=== PATIENT | male | born 1965 | race Caucasian/White ===

== ENCOUNTER 2016-08-30 18:04 | Emergency (ER) | payer SELFPAY ==
[2016-08-30] MEDS ORDERED: NS 500 ML IV ONE (18:10)
[2016-08-30] MEDS ORDERED: NITROGLYCERIN 0.4 MG BTL SL PRN (18:10)
--- NOTE | 2016-08-30 18:14 | EDPHY ---
H & P Time Seen by Provider: 08/30/16 18:05 HPI/ROS: CHIEF COMPLAINT: Chest pain HISTORY OF PRESENT ILLNESS: The patient is a 51-year-old man with a history of only hypertension who comes to the emergency department complaining of chest tightness and pressure for the last 2 hours. It began around 4:00 a.m.. He has never had these symptoms before. They have not been associated with eating or exercise or any other type of activity. He thought that maybe he had been working too hard over the last 2 days. He denies any leg pain or swelling. He is not a smoker. No recent travel or surgery. No history of cardiac disease. He is not on any medications. He does occasionally of heartburn but states that this does not feel similar. He points to his lower sternum as the area of pain. No shortness of breath, no nausea, no vomiting no diaphoresis. No lightheadedness or dizziness. REVIEW OF SYSTEMS: Constitutional: denies: chills, fever, recent illness, recent injury EENTM: denies: blurred vision, double vision, nose congestion Respiratory: denies: cough, shortness of breath Cardiac: See HPI Gastrointestinal/Abdominal: denies: abdominal pain, diarrhea, nausea, vomiting, blood streaked stools Genitourinary: denies: dysuria, frequency, hematuria, pain Musculoskeletal: denies: joint pain, muscle pain Skin: denies: lesions, rash, jaundice, bruising Neurological: denies: headache, numbness, paresthesia, tingling, dizziness, weakness Hematologic/Lymphatic: denies: blood clots, easy bleeding, easy bruising Immunologic/allergic: denies: HIV/AIDS, transplant EXAM: GENERAL: Well-appearing, obese, no acute distress HEAD: Atraumatic, normocephalic. EYES: Pupils equal round and reactive to light, extraocular movements intact, sclera anicteric, conjunctiva are normal. ENT: TMs normal, nares patent, oropharynx clear without exudates. Moist mucous membranes. NECK: Normal range of motion, supple without lymphadenopathy or JVD. LUNGS: Breath sounds clear to auscultation bilaterally and equal. No wheezes rales or rhonchi. HEART: Regular rate and rhythm without murmurs, rubs or gallops. ABDOMEN: Soft, nontender, normoactive bowel sounds. No guarding, no rebound. No masses appreciated. BACK: No CVA tenderness, no spinal tenderness, step-offs or deformities EXTREMITIES: Normal range of motion, no pitting or edema. No clubbing or cyanosis. NEUROLOGICAL: Cranial nerves II through XII grossly intact. Normal speech, normal gait. 5/5 strength, normal movement in all extremities, normal sensation PSYCH: Normal mood, normal affect. SKIN: Warm, dry, normal turgor, no visible rashes or lesions. Source: Patient Exam Limitations: No limitations - Medical/Surgical History Hx Asthma: No Hx Chronic Respiratory Disease: No Hx Diabetes: No Hx Cardiac Disease: No Hx Renal Disease: No Hx Cirrhosis: No Hx Alcoholism: No - Family History Significant Family History: No pertinent family hx - Social History Smoking Status: Never smoked Alcohol Use: Sober Drug Use: None Constitutional: Initial Vital Signs Temperature (C) 37.3 C 08/30/16 18:13 Heart Rate 86 08/30/16 18:13 Respiratory Rate 16 08/30/16 18:13 Blood Pressure 165/102 H 08/30/16 18:13 O2 Sat (%) 93 08/30/16 18:13 O2 Delivery Mode Room Air Allergies/Adverse Reactions: No Known Allergies Allergy (Unverified 08/30/16 18:13) Home Medications: Medication Instructions Recorded Blood Pressure Medicine 08/30/16 Medical Decision Making - Diagnostics EKG Interpretation: An EKG obtained and was read and documented in trace view. Please see trace view for full reading and report. Sinus rhythm, no acute ischemic changes Imaging: X-ray: chest x-ray was obtained. I viewed the images myself on the PACS system. My interpretation of the images is: negative for acute disease . The radiologist interpretation is negative. ED Course/Re-evaluation: 7:55 p.m. we discussed the patient's lab and x-ray and EKG results. He is reassured. He is currently pain free. His blood pressure is better than it has been in several years at 125/70. He is eager to go home and declines any further workup or testing. I recommended a repeat troponin in the ER or admission to the hospital and stress testing. The patient declines both these. He will follow up with his doctor Sonya for outpatient stress test. We discussed the fact that his lipase is slightly high. He does not have any abdominal tenderness. He does drink fairly often a recommended he decrease his alcohol intake. He states that he has been unemployed for the last 3 months and that this has been contributing to his stress. He has had a job offer recently however Differential Diagnosis: Partial list of the Differential diagnosis considered include but were not limited to; acute coronary disease, arrhythmia, anxiety, pneumonia and although unlikely based on the history and physical exam, I also considered PE, pancreatitis, biliary disease. I discussed these differential diagnoses and the plan with the patient as well as the usual and expected course. The patient understands that the diagnosis is provisional and that in medicine we are not always correct and that further workup is often warranted. Usual and customary warnings were given. All of the patient's questions were answered. The patient was instructed to return to the emergency department should the symptoms at all worsen or return, otherwise to followup with the physician as we discussed. - Data Points Laboratory Results: Laboratory Results 08/30/16 17:45 08/30/16 17:45 08/30/16 17:45 WBC 7.46 10^3/uL (3.80-9.50) RBC 5.40 10^6/uL (4.40-6.38) Hgb 17.3 g/dL (13.7-17.5) Hct 48.4 % (40.0-51.0) MCV 89.6 fL (81.5-99.8) MCH 32.0 pg (27.9-34.1) MCHC 35.7 g/dL (32.4-36.7) RDW 12.0 % (11.5-15.2) Plt Count 243 10^3/uL (150-400) MPV 10.2 fL (8.7-11.7) Neut % (Auto) 52.9 % (39.3-74.2) Lymph % (Auto) 34.9 % (15.0-45.0) [place] % (Auto) 7.2 % (4.5-13.0) Eos % (Auto) 3.9 % (0.6-7.6) Baso % (Auto) 0.8 % (0.3-1.7) Nucleat RBC Rel Count 0.0 % (0.0-0.2) Absolute Neuts (auto) 3.95 10^3/uL (1.70-6.50) Absolute Lymphs (auto) 2.60 10^3/uL (1.00-3.00) Absolute Monos (auto) 0.54 10^3/uL (0.30-0.80) Absolute Eos (auto) 0.29 10^3/uL (0.03-0.40) Absolute Basos (auto) 0.06 10^3/uL (0.02-0.10) Absolute Nucleated RBC 0.00 10^3/uL (0-0.01) Immature Gran % 0.3 % (0.0-1.1) Immature Gran # 0.02 10^3/uL (0.00-0.10) D-Dimer < 0.27 ug/mLFEU (0.00-0.50) Sodium 139 mEq/L (134-144) Potassium 4.2 mEq/L (3.5-5.2) Chloride 104 mEq/L (97-110) Carbon Dioxide 20 L mEq/l (22-31) Anion Gap 15 mEq/L (8-16) BUN 18 mg/dL (7-23) Creatinine 0.8 mg/dL (0.7-1.3) Estimated GFR > 60 Glucose 98 mg/dL (70-100) Calcium 9.9 mg/dL (8.5-10.4) Total Bilirubin 1.0 mg/dL (0.1-1.4) Conjugated Bilirubin 0.3 mg/dL (0.0-0.5) Unconjugated Bilirubin 0.7 mg/dL (0.0-1.1) AST 49 IU/L (17-59) ALT 80 H IU/L (21-72) Alkaline Phosphatase 101 IU/L (38-126) Troponin I < 0.012 ng/mL (0-0.034) Total Protein 7.8 g/dL (6.3-8.2) Albumin 4.7 g/dL (3.5-5.0) Lipase 375.0 H IU/L (23-300) Medications Given: Discontinued Medications Sodium Chloride (Ns) 500 mls @ 0 mls/hr IV ONCE ONE PRN Reason: As Directed Stop: 08/30/16 18:11 Last Admin: 08/30/16 18:32 Dose: 500 mls Departure - Departure Disposition: Home, Routine, Self-Care Clinical Impression: Chest pain Qualifiers: Chest pain type: unspecified Qualifier Code: (R07.9) Chest pain, unspecified Condition: Fair Instructions: Chest Pain (ED) Additional Instructions: Follow-up with your doctor to have a stress test within 72 hours. If her symptoms return or worsen return to the emergency department. Referrals: Keith Hassan [Primary Care Provider] - As per Instructions Zachary Rollins MD [Medical Doctor] - As per Instructions
[2016-08-30 18:15] VITALS: RESP 16; TEMP 99.1
--- NOTE | 2016-08-30 18:15 | CPEKG ---
Heart Rate: 77 RR Interval: 779 P-R Interval: 168 QRSD Interval: 90 QT Interval: 376 QTC Interval: 426 P [place]: 42 QRS [place]: 88 T Wave [place]: 9 EKG Severity - NORMAL ECG - EKG Impression: SINUS RHYTHM Electronically Signed By: Isra Lopez 30-Aug-2016 18:16:39
[2016-08-30 18:22] LABS: % IMMATURE GRANULYOCYTES 0.3 % (0.0-1.1); ABSOLUTE IMMATURE GRANULOCYTES 0.02 10^3/uL (0.00-0.10); ADD DIFF? NO; ADD MORPH? NO; ADD SCAN? NO; ATYPICAL LYMPHOCYTE FLAG 0 (0-99); FRAGMENT RBC FLAG 0 (0-99); HEMATOCRIT 48.4 % (40.0-51.0); HEMOGLOBIN 17.3 g/dL (13.7-17.5); LEFT SHIFT FLG 0 (0-99); LIPEMIA HEMOLYSIS FLAG 90 (0-99); MEAN CELL HEMOGLOBIN CONCENTR. 35.7 g/dL (32.4-36.7); MEAN CELL VOLUME 89.6 fL (81.5-99.8); MEAN PLATELET VOLUME 10.2 fL (8.7-11.7); PLATELET CLUMPS FLAG 0 (0-99); PLATELET COUNT 243 10^3/uL (150-400)
[2016-08-30 18:37] LABS: ALANINE AMINOTRANSFERASE 80 IU/L (21-72); ALBUMIN 4.7 g/dL (3.5-5.0); ALKALINE PHOSPHATASE 101 IU/L (38-126); ANION GAP 15 mEq/L (8-16); ASPARTATE AMINOTRANSFERASE 49 IU/L (17-59); BILIRUBIN-CONJUGATED 0.3 mg/dL (0.0-0.5); BILIRUBIN-UNCONJUGATED 0.7 mg/dL (0.0-1.1); CALCIUM 9.9 mg/dL (8.5-10.4); CARBON DIOXIDE 20 mEq/l (22-31); CHLORIDE 104 mEq/L (97-110); CREATININE 0.8 mg/dL (0.7-1.3); GLOMERULAR FILTRATION RATE > 60; GLUCOSE 98 mg/dL (70-100); POTASSIUM 4.2 mEq/L (3.5-5.2); SODIUM 139 mEq/L (134-144); TOTAL PROTEIN 7.8 g/dL (6.3-8.2)
[2016-08-30 18:47] LABS: TROPONIN I < 0.012 ng/mL (0-0.034)
--- NOTE | 2016-08-30 18:57 | DX ---
PA and Lateral Chest X-ray 1801 hours History: Chest pain and tightness. History of hypertension. Findings: Heart size and pulmonary vasculature are normal. The lungs are clear without infiltrates or effusions. There is no pneumothorax. Internal fixation plate is noted left clavicle from previous fr acture. Mild hypertrophic osteophytes are noted anteriorly involving the lower thoracic spine. Impression: No active cardiopulmonary disease seen.
[2016-08-30 20:12] VITALS: BP 155/90; PULSE 72; O2SAT 98
== END 2016-08-30 20:12 | disposition home or self-care (01) ==
LOC: EDUNIT#
DX: R07.9 Chest pain, unspecified (principal)

== ENCOUNTER 2016-09-23 00:34 | Emergency (ER) | payer SELFPAY ==
[2016-09-23 00:41] VITALS: RESP 16
--- NOTE | 2016-09-23 01:32 | EDPHY ---
HPI/HX/ROS/PE/MDM Narrative: Chief complaint: Headache, nausea, chest discomfort, sweating HPI: 51-year-old male with a history of hypertension presenting with 1 week of mild 1/10 headache, had some nausea today. He has been feeling like he has had just a mild cold-like symptoms. Has had his normal energy is been exercising. He is also stating that he has been having some intermittent chest irritation at the bottom of his sternum for the last month. He has been having it daily. There are no exacerbating factors. At worst is a 1 to 2/10. He last had it 2 days ago. He made an appointment to see his physician later this morning. The woke up at about 07/1930 in a cold sweat which alarmed him. He is now presenting with concerns that he might have a heart condition. Does not have any cough, no sore throat, no abdominal pain, no shortness of breath. No dyspnea on exertion. He has had some nasal congestion. He has not noticed any aggravating or alleviating factors. Some subjective fevers chills. Does not have any family history of coronary artery disease. He does not smoke cigarettes. ROS: 10 point Review of Systems is negative except as noted in the HPI. Past medical history: Hypertension Medications: Lisinopril Allergies: No known drug allergies Social history: Does not smoke, does drink occasional alcohol, does use occasional marijuana Family history: No family history of coronary artery disease and 1st or second- degree relatives Physical exam: Gen: Awake, Alert, No Distress HEENT: Nose: no rhinorrhea Eyes: PERRLA, EOMI Mouth: Moist mucosa Neck: Supple, no JVD Chest: nontender, lungs clear to auscultation Heart: S1, S2 normal, no murmur Abd: Soft, non-tender, no guarding Back: no CVA tenderness, no midline tenderness Ext: no edema, non-tender Skin: no rash Neuro: CN II-XII intact, Sensation grossly intact, Strength 5/5 in bilateral upper and lower extremities ED Course: 51-year-old male presenting with 1 month of intermittent mild chest discomfort, mild headache, upper respiratory symptoms, woke with a cold sweat is concerned that he might be having a heart attack. I suspect symptoms are likely benign in nature. Will obtain an ECG, CBC, metabolic panel and troponin. If these are all negative anticipate he will be discharged home with follow-up with his primary care physician for outpatient stress testing. ECG: Normal I have reviewed the patient's records. He was here on the 7th of this month for an episode of chest pain. His workup at that time was negative. He was referred for outpatient follow-up for stress test. Patient has not yet arranged. Patient's workup appears negative. ECG is normal. Troponin is negative. Symptoms are likely secondary to a viral etiology. Will discharge with follow- up with his primary care physician to arrange for outpatient stress test. - Data Points Laboratory Results: Laboratory Results 09/23/16 00:55 09/23/16 00:55 09/23/16 09/23/16 00:58 00:55 WBC 9.13 10^3/uL (3.80-9.50) RBC 4.98 10^6/uL (4.40-6.38) Hgb 16.1 g/dL (13.7-17.5) Hct 45.1 % (40.0-51.0) MCV 90.6 fL (81.5-99.8) MCH 32.3 pg (27.9-34.1) MCHC 35.7 g/dL (32.4-36.7) RDW 12.5 % (11.5-15.2) Plt Count 206 10^3/uL (150-400) MPV 10.2 fL (8.7-11.7) Neut % (Auto) 53.9 % (39.3-74.2) Lymph % (Auto) 31.9 % (15.0-45.0) [place] % (Auto) 8.5 % (4.5-13.0) Eos % (Auto) 4.6 % (0.6-7.6) Baso % (Auto) 0.7 % (0.3-1.7) Nucleat RBC Rel Count 0.0 % (0.0-0.2) Absolute Neuts (auto) 4.92 10^3/uL (1.70-6.50) Absolute Lymphs (auto) 2.91 10^3/uL (1.00-3.00) Absolute Monos (auto) 0.78 10^3/uL (0.30-0.80) Absolute Eos (auto) 0.42 H 10^3/uL (0.03-0.40) Absolute Basos (auto) 0.06 10^3/uL (0.02-0.10) Absolute Nucleated RBC 0.00 10^3/uL (0-0.01) Immature Gran % 0.4 % (0.0-1.1) Immature Gran # 0.04 10^3/uL (0.00-0.10) Sodium 137 mEq/L (134-144) Potassium 4.1 mEq/L (3.5-5.2) Chloride 104 mEq/L (97-110) Carbon Dioxide 24 mEq/l (22-31) Anion Gap 9 mEq/L (8-16) BUN 15 mg/dL (7-23) Creatinine 0.7 mg/dL (0.7-1.3) Estimated GFR > 60 Glucose 97 mg/dL (70-100) Calcium 9.2 mg/dL (8.5-10.4) Troponin I Pending Influenza Typ A,B (DFA) NEGATIVE FOR FLU (NEGATIVE) General Time Seen by Provider: 09/23/16 01:09 Initial Vital Signs: Initial Vital Signs Temperature (C) 36.7 C 09/23/16 00:38 Heart Rate 85 09/23/16 00:38 Respiratory Rate 16 09/23/16 00:38 Blood Pressure 166/112 H 09/23/16 00:38 O2 Sat (%) 95 09/23/16 00:38 O2 Delivery Mode Room Air Allergies/Adverse Reactions: No Known Allergies Allergy (Unverified 09/23/16 00:38) Home Medications: Medication Instructions Recorded Lisinopril 09/23/16 Departure - Departure Disposition: Home, Routine, Self-Care Clinical Impression: Chest pain, Viral upper respiratory tract infection Condition: Good Instructions: Chest Pain (ED), Viral Syndrome (ED) Additional Instructions: Follow up with her primary care physician in the next 48 hours to arrange for a stress test. Return to the emergency depart for increasing pain, fevers, chills, shortness of breath, or any concerns. Referrals: Keith Hassan [Primary Care Provider] - As per Instructions
[2016-09-23 01:47] LABS: % IMMATURE GRANULYOCYTES 0.4 % (0.0-1.1); ABSOLUTE IMMATURE GRANULOCYTES 0.04 10^3/uL (0.00-0.10); ADD DIFF? NO; ADD MORPH? NO; ADD SCAN? NO; ATYPICAL LYMPHOCYTE FLAG 0 (0-99); FRAGMENT RBC FLAG 0 (0-99); HEMATOCRIT 45.1 % (40.0-51.0); HEMOGLOBIN 16.1 g/dL (13.7-17.5); LEFT SHIFT FLG 0 (0-99); LIPEMIA HEMOLYSIS FLAG 90 (0-99); MEAN CELL HEMOGLOBIN 32.3 pg (27.9-34.1); MEAN CELL HEMOGLOBIN CONCENTR. 35.7 g/dL (32.4-36.7); MEAN CELL VOLUME 90.6 fL (81.5-99.8); MEAN PLATELET VOLUME 10.2 fL (8.7-11.7); PLATELET CLUMPS FLAG 0 (0-99); PLATELET COUNT 206 10^3/uL (150-400); RED BLOOD CELL COUNT 4.98 10^6/uL (4.40-6.38); RED CELL DISTRIBUTION WIDTH 12.5 % (11.5-15.2)
[2016-09-23 01:48] LABS: ANION GAP 9 mEq/L (8-16); CALCIUM 9.2 mg/dL (8.5-10.4); CARBON DIOXIDE 24 mEq/l (22-31); CHLORIDE 104 mEq/L (97-110); CREATININE 0.7 mg/dL (0.7-1.3); GLOMERULAR FILTRATION RATE > 60; GLUCOSE 97 mg/dL (70-100); POTASSIUM 4.1 mEq/L (3.5-5.2); SODIUM 137 mEq/L (134-144)
--- NOTE | 2016-09-23 01:51 | CPEKG ---
Heart Rate: 79 RR Interval: 759 P-R Interval: 168 QRSD Interval: 86 QT Interval: 392 QTC Interval: 450 P [place]: 33 QRS [place]: 87 T Wave [place]: 17 EKG Severity - NORMAL ECG - EKG Impression: SINUS RHYTHM Electronically Signed By: Handy Beltre 23-Sep-2016 07:08:14
[2016-09-23 02:01] LABS: TROPONIN I < 0.012 ng/mL (0-0.034)
[2016-09-23 02:12] VITALS: BP 152/89; PULSE 84; TEMP 98.2; O2SAT 96
== END 2016-09-23 02:12 | disposition home or self-care (01) ==
DX: R07.89 Other chest pain (principal); J06.9 Acute upper respiratory infection, unspecified; I10 Essential (primary) hypertension